=== PATIENT | female | born 1945 | race Hispanic/Latino ===

== ENCOUNTER 2023-01-09 13:50 | Outpatient (CLI) | payer OTHER | END 2023-01-09 13:51 | disposition home or self-care (01) | LOC: ULT 13:50 | PROVIDERS: ATTEND Family Medicine | DX: M79.652 Pain in left thigh (principal); I82.492 Acute embolism and thrombosis of other specified deep vein of left lower extremity ==

== ENCOUNTER 2023-01-09 15:02 | Emergency (ER) | payer OTHER ==
[2023-01-09 16:33] LABS: #Eosinphils 0.1 thou/uL (0.0-0.7); #Lymphocytes 1.8 thou/uL (1.20-3.40); #Monocytes 0.6 thou/uL (0.11-0.59); #Neutrophils 3.2 thou/uL (1.40-6.50); %Basophils 0.3 % (0.0-1.0); %Eosinophils 2.3 % (0.0-10.0); %Lymphocytes 31.2 % (21.0-51.0); %Monocytes 9.7 % (0.0-10.0); %Neutrophils 56.4 % (42.0-75.0); Hemoglobin 12.5 g/dL (12.0-16.0); Mean Corpuscular Hemoglobin 31.7 pg (27.0-31.0); Mean Corpuscular Volume 93.2 fl (78.0-98.0); Mean Platelet Volume 8.4 fL (7.4-10.4); Platelet Count 176 10x3/uL (130-400); RBC Distribution Width 13.5 % (11.5-14.5); Red Blood Cell (RBC) Count 3.94 mill/uL (4.20-5.40); White Blood Cell (WBC) Count 5.6 10x3/uL (4.8-10.8)
[2023-01-09 16:41] LABS: INR-International Normal Ratio 1.1; PTT 26.6 sec (22.9-36.1); Prothrombin Time 14.6 sec (12.0-14.7)
[2023-01-09 17:04] LABS: ALT (SGPT) 11 U/L (8-55); AST (SGOT) 22 U/L (5-34); Albumin 3.7 g/dL (3.4-4.8); Alkaline Phosphatase 76 U/L (40-110); Anion Gap 12 mmol/L (10-20); BUN (Urea Nitrogen) 33 mg/dL (9.8-20.1); Bilirubin, Total 0.4 mg/dL (0.2-1.2); Calc. Creatinine Clearance 0 mL/min (70-130); Carbon Dioxide 20 mmol/L (23-31); Chloride 109 mmol/L (98-107); Estimated GFR 59; Globulin 3.6 g/dL (2.4-3.5); Glucose 95 mg/dL (83-110); Potassium 4.3 mmol/L (3.5-5.1); Protein, Total 7.3 g/dL (5.8-8.1); Sodium 137 mmol/L (136-145)
[2023-01-09] MEDS ORDERED: HYDROcodone/Acetaminophen 5/325 mg Tablet ONE (18:35)
== END 2023-01-09 18:44 | disposition home or self-care (01) ==
LOC: ERS 15:02
DX: I82.452 Acute embolism and thrombosis of left peroneal vein (principal)
CPT/HCPCS: 36415; 80053; 85025; 85610; 85730; 99283

== ENCOUNTER 2024-06-09 05:55 | Inpatient (IN) | payer MEDICARE ==
[2024-06-07 10:00] VITALS: BMI 32.2
[2024-06-09] MEDS ORDERED: Vancomycin HCl 500 MG VIAL ONE (07:01)
[2024-06-09] MEDS ORDERED: fentaNYL PF 100 MCG/2 ML SYRINGE ONE ×2 (07:04→10:55)
[2024-06-09] MEDS ORDERED: Rocuronium Bromide 10 MG/ML (10ML VIAL) ONE (07:04)
[2024-06-09] MEDS ORDERED: Lidocaine 1% PF 5 ML VIAL ONE (07:05)
[2024-06-09] MEDS ORDERED: PROPOFOL 20 ML ONE (07:05)
[2024-06-09] MEDS ORDERED: Vancomycin 1 GM VIAL ONE (07:06)
[2024-06-09] MEDS ORDERED: CEFAZOLIN 2 GM VIAL ONE (07:14)
[2024-06-09] MEDS ORDERED: Sodium Chloride 0.9% 100 ML ONE (07:14)
[2024-06-09] MEDS ORDERED: Dexamethasone 20 MG/5 ML VIAL ONE (09:17)
[2024-06-09] MEDS ORDERED: Ketorolac Tromethamine 30 MG (1 mL) VIAL ONE (09:17)
[2024-06-09] MEDS ORDERED: Ondansetron PF 4 MG/2 ML Vial ONE (09:17)
[2024-06-09] MEDS ORDERED: Rocuronium Bromide 50 MG/5 ML VIAL ONE (09:28)
[2024-06-09] MEDS ORDERED: SUGAMMADEX SODIUM 200 MG/2 ML VIAL ONE (10:31)
[2024-06-09] MEDS ORDERED: Acetaminophen 325 MG TAB PO PRN (10:37)
[2024-06-09] MEDS ORDERED: diphenhydrAMINE 25 MG CAP PO PRN (10:37)
[2024-06-09] MEDS ORDERED: traMADol HCl 50 MG TAB PO PRN (10:37)
[2024-06-09] MEDS ORDERED: Milk Of Magnesia 30 ML UDCUP PO PRN (10:37)
[2024-06-09] MEDS ORDERED: Morphine 2 MG/ML VIAL SLOW IVP PRN (10:37)
[2024-06-09] MEDS ORDERED: Ondansetron PF 4 MG/2 ML Vial IVP PRN (10:37)
[2024-06-09] MEDS ORDERED: hydrALAZINE 20 MG/ML VIAL SLOW IVP PRN (10:41)
[2024-06-09] MEDS ORDERED: tiZANidine HCl 4 MG TAB PO PRN (10:41)
[2024-06-09] MEDS ORDERED: Alendronate Sodium 70 mg Tablet PO SCH (10:45)
[2024-06-09] MEDS ORDERED: hydrALAZINE 20 MG/ML VIAL ONE (11:32)
[2024-06-09] MEDS: Sodium Chloride 0.9% 1,000 ML IV SCH (13:08)
[2024-06-09] MEDS: metFORMIN 500 MG TAB PO SCH (13:08)
[2024-06-09] MEDS: HYDROcodone/Acetaminophen 5/325 mg Tablet PO PRN (13:34)
[2024-06-09] MEDS: Pregabalin 50 MG CAP PO SCH (13:35)
[2024-06-09] MEDS: Atorvastatin Calcium 40 MG TAB PO SCH (13:35)
[2024-06-09] MEDS: Lisinopril 20 MG TAB PO SCH (13:35)
[2024-06-09] MEDS: CEFAZOLIN 2 GM in Sodium Chloride 0.9% 100 ML IVPB SCH (15:40)
[2024-06-09] MEDS: Acetaminophen/Codeine 30-300mg Tablet PO PRN (20:17)
[2024-06-10] MEDS: Levothyroxine Sodium 25 MCG TAB PO SCH (05:26)
[2024-06-10 05:30] LABS: #Basophils Less than 0.03 10x3/uL (0.0-0.2); #Eosinphils Less than 0.03 10x3/uL (0.0-0.7); %Basophils 0.1 % (0.0-1.0); %Lymphocytes 8.1 % (21.0-51.0); %Monocytes 5.8 % (0.0-10.0); %Neutrophils 85.3 % (42.0-75.0); Hematocrit 31.9 % (36.0-47.0); Hemoglobin 10.4 g/dL (12.0-16.0); Mean Corpuscular HGB CONC 32.6 g/dL (32.0-36.0); Mean Corpuscular Hemoglobin 29.8 pg (27.0-31.0); Mean Corpuscular Volume 91.4 fL (78.0-98.0); Mean Platelet Volume 10.1 fL (7.4-10.4); Platelet Count 200 10x3/uL (130-400); RBC Distribution Width 14.7 % (11.5-14.5); Red Blood Cell (RBC) Count 3.49 mill/uL (4.20-5.40)
[2024-06-10 05:47] LABS: Anion Gap 13 mmol/L (10-20); BUN (Urea Nitrogen) 29 mg/dL (9.8-20.1); Calc. Creatinine Clearance 47 mL/min (70-130); Calcium 8.6 mg/dL (7.8-10.44); Carbon Dioxide 22 mmol/L (23-31); Chloride 100 mmol/L (98-107); Estimated GFR 49; Glucose 220 mg/dL (83-110); Potassium 4.2 mmol/L (3.5-5.1); Sodium 131 mmol/L (136-145)
[2024-06-10] MEDS: Alogliptin 6.25 MG TAB PO SCH (09:10)
[2024-06-11 04:20] VITALS: TEMP 98.4
[2024-06-11 11:41] VITALS: BP 126/72
[2024-06-11] MEDS ORDERED: metFORMIN 500 MG TAB PO SCH (21:00)
[2024-06-11] MEDS ORDERED: Non-Formulary Item 1 EACH (Sitagliptin Phos/Metformin Hcl [Janumet] 50 MG/500 MG Tablet) PO SCH (21:00)
[2024-06-11] MEDS ORDERED: Saxagliptin 2.5 MG TAB PO SCH (21:00)
[2024-06-12] MEDS ORDERED: Ezetimibe 10 MG TAB PO SCH (21:00)
[2092-06-09] MEDS ORDERED: PHENYLEPHRINE-NS 100 MCG/ML 10 ML SYRINGE ONE (14:41)
== END 2024-06-11 14:42 | disposition home or self-care (01) | DRG 460 ==
LOC: SDC 05:55 → SURG A 12:43 → OBSVTOIN 06-10 07:41
PROVIDERS: ADMIT Surgery; ATTEND Surgery
PROC: 0SG0071 Fusion of Lumbar Vertebral Joint with Autologous Tissue Substitute, Posterior Approach, Posterior Column, Open Approach (ICD-10-PCS; principal; 2024-06-09)
PROC: 01NB0ZZ Release Lumbar Nerve, Open Approach (ICD-10-PCS; 2024-06-09)
DX: M48.062 Spinal stenosis, lumbar region with neurogenic claudication (principal); M54.16 Radiculopathy, lumbar region; M43.16 Spondylolisthesis, lumbar region; Z98.51 Tubal ligation status
CPT/HCPCS: 36415; 80048; 85025; 93005; 93010; C1713; J0360; J1100; J1885; J2405; J2704; J3370

== ENCOUNTER 2024-07-14 14:09 | Inpatient (IN) | payer MEDICARE ==
[2024-07-14 15:05] LABS: #Basophils 0.04 10x3/uL (0.0-0.2); %Basophils 0.5 % (0.0-1.0); %Eosinophils 2.5 % (0.0-10.0); %Monocytes 10.2 % (0.0-10.0); %Neutrophils 64.3 % (42.0-75.0); Hematocrit 33.1 % (36.0-47.0); Hemoglobin 10.4 g/dL (12.0-16.0); Mean Corpuscular HGB CONC 31.4 g/dL (32.0-36.0); Mean Corpuscular Hemoglobin 29.1 pg (27.0-31.0); Mean Corpuscular Volume 92.7 fL (78.0-98.0); Mean Platelet Volume 10.5 fL (7.4-10.4); Platelet Count 212 10x3/uL (130-400); RBC Distribution Width 14.6 % (11.5-14.5); Red Blood Cell (RBC) Count 3.57 mill/uL (4.20-5.40)
[2024-07-14 15:57] LABS: ALT (SGPT) 7 U/L (8-55); AST (SGOT) 15 U/L (5-34); Albumin 3.2 g/dL (3.4-4.8); Alkaline Phosphatase 71 U/L (40-110); Anion Gap 14 mmol/L (10-20); BUN (Urea Nitrogen) 38 mg/dL (9.8-20.1); Bilirubin, Total 0.3 mg/dL (0.2-1.2); Calc. Creatinine Clearance 0 mL/min (70-130); Calcium 8.9 mg/dL (7.8-10.44); Carbon Dioxide 22 mmol/L (23-31); Chloride 107 mmol/L (98-107); Estimated GFR 45; Globulin 3.9 g/dL (2.4-3.5); Glucose 84 mg/dL (83-110); Potassium 4.5 mmol/L (3.5-5.1); Protein, Total 7.1 g/dL (5.8-8.1); Sodium 138 mmol/L (136-145)
[2024-07-14 18:51] LABS: Bacteria/HPF None Seen HPF (None Seen); Bilirubin Negative (Negative); Blood, Urine Negative (Negative); CAUTI Indications for Culture Dysuria,urgency,freq; Clarity Clear (Clear); Glucose, Urine (Dipstick) Normal (Negative); Ketone, Urine Negative (Negative); Leukocyte 75 Leu/uL (Negative); Nitrite Negative (Negative); Protein, Urine (Dipstick) Negative (Neg-Trace); RBC/HPF 0-3 HPF (0-3); Specific Gravity, Urine 1.003 (1.002-1.036); Squamous Epithelial 0-3 HPF (0-3); Urobilinogen Normal mg/dL (Less than 2)
[2024-07-14 18:53] LABS: Urine Culture Reflex No No
[2024-07-14] MEDS ORDERED: Ondansetron PF 4 MG/2 ML Vial IVP PRN (18:54)
[2024-07-14] MEDS ORDERED: diphenhydrAMINE 25 MG CAP PO PRN (18:54)
[2024-07-14] MEDS: Apixaban 5 MG TAB PO SCH (20:29)
[2024-07-14 20:54] VITALS: BMI 33.2
[2024-07-15] MEDS ORDERED: Thrombin 5000 UNITS/5 ML VIAL ONE (06:17)
[2024-07-15] MEDS ORDERED: Vancomycin 1 GM VIAL ONE (06:17)
[2024-07-15] MEDS ORDERED: Lidocaine 2% PF 5 ML VIAL ONE (06:42)
[2024-07-15] MEDS ORDERED: PROPOFOL 20 ML ONE (06:44)
[2024-07-15] MEDS ORDERED: fentaNYL 50 mcg/mL 1 mL Vial ONE ×2 (06:44→07:44)
[2024-07-15] MEDS ORDERED: CEFAZOLIN 2 GM VIAL ONE (07:02)
[2024-07-15] MEDS ORDERED: Rocuronium Bromide 10 MG/ML (10ML VIAL) ONE (07:28)
[2024-07-15] MEDS ORDERED: Dexamethasone 20 MG/5 ML VIAL ONE (07:28)
[2024-07-15] MEDS ORDERED: SUGAMMADEX SODIUM 200 MG/2 ML VIAL ONE (07:48)
[2024-07-15] MEDS ORDERED: Fentanyl 250 MCG/5 ML VIAL ONE (08:28)
[2024-07-15] MEDS ORDERED: Promethazine HCl 25 MG/ML VIAL ONE (08:32)
[2024-07-15] MEDS: metFORMIN 500 MG TAB PO SCH (17:06)
[2024-07-15] MEDS: CEFAZOLIN 2 GM in Sodium Chloride 0.9% 100 ML IVPB SCH (17:06)
[2024-07-15] MEDS: traMADol HCl 50 MG TAB PO PRN (17:07)
[2024-07-15] MEDS: Sodium Chloride 0.9% 1,000 ML IV SCH (17:09)
[2024-07-15] MEDS: Pregabalin 50 MG CAP PO SCH (21:21)
[2024-07-15] MEDS ORDERED: CEFAZOLIN 2 GM in Sodium Chloride 0.9% 100 ML IVPB SCH (22:00)
[2024-07-16] MEDS: Levothyroxine Sodium 125 MCG TAB PO SCH (05:02)
[2024-07-16] MEDS: Alogliptin 25 MG TAB PO SCH (08:31)
[2024-07-16] MEDS: Lisinopril 10 MG TAB PO SCH (08:32)
[2024-07-16] MEDS ORDERED: Alendronate Sodium 70 mg Tablet PO SCH (09:00)
[2024-07-16 13:20] VITALS: BMI 32.2
[2024-07-17] MEDS: cefTRIAXone\\ROCEPHIN 2 GM in Sodium Chloride 0.9% 100 ML IVPB SCH (15:55)
[2024-07-18] MEDS: Acetaminophen 325 MG TAB PO PRN (11:19)
[2024-07-18] MEDS: Acetaminophen/Codeine 30-300mg Tablet PO PRN (13:13)
[2024-07-18] MEDS: Ketorolac Tromethamine 30 MG (1 mL) VIAL IVP SCH (16:04)
[2024-07-18] MEDS: HYDROcodone/Acetaminophen 7.5/325 mg Tablet PO SCH (16:04)
[2024-07-18] MEDS: Morphine 4 MG/ML VIAL SLOW IVP SCH (16:05)
[2024-07-18 16:27] VITALS: BP 189/78; TEMP 97.6
== END 2024-07-18 17:20 | disposition home or self-care (01) | DRG 909 ==
LOC: ERS 14:09 → SURG A 18:46 → OBSVTOIN 07-15 16:00
PROVIDERS: ADMIT Surgery; ATTEND Surgery
PROC: 0JD70ZZ Extraction of Back Subcutaneous Tissue and Fascia, Open Approach (ICD-10-PCS; principal; 2024-07-14)
DX: T81.31XA Disruption of external operation (surgical) wound, not elsewhere classified, initial encounter (principal); E11.9 Type 2 diabetes mellitus without complications; I10 Essential (primary) hypertension; E03.9 Hypothyroidism, unspecified; Z98.890 Other specified postprocedural states; E78.5 Hyperlipidemia, unspecified; E66.9 Obesity, unspecified; Z68.32 Body mass index [BMI] 32.0-32.9, adult
CPT/HCPCS: 36415; 72100; 80053; 81001; 83605; 85025; 86141; 87040; 87070; 87077; 87186; 87205; 94760; 97139; 99284; G0378; J0696; J1100; J1885; J2272; J2550; J2704; J3010; J3370; J7030